=== PATIENT | female | born 1975 | race African-American/Black ===

== ENCOUNTER 2017-06-05 01:02 | Emergency (ER) | payer BC, MEDICAID ==
[~2017-06-05] VITALS: Ht 144.8 cm; Wt 41.0 kg
[2017-06-05 01:04] VITALS: BP 123/77
== END 2017-06-05 08:28 | disposition left against medical advice (07) ==
LOC: ER 01:07
DX: R10.9 Unspecified abdominal pain (principal); Z53.21 Procedure and treatment not carried out due to patient leaving prior to being seen by health care provider

== ENCOUNTER 2017-11-26 19:01 | Emergency (ER) | payer MEDICAID ==
[~2017-11-26] VITALS: Ht 162.6 cm; Wt 50.0 kg
[2017-11-26] MEDS ORDERED: KETOROLAC 60MG/2ML VIAL IM ONE (21:45)
[2017-11-26 23:09] VITALS: BP 119/59
== END 2017-11-26 23:09 | disposition home or self-care (01) ==
LOC: ER 19:25
DX: S09.8XXA Other specified injuries of head, initial encounter (principal); S16.1XXA Strain of muscle, fascia and tendon at neck level, initial encounter; J45.909 Unspecified asthma, uncomplicated; F17.200 Nicotine dependence, unspecified, uncomplicated; F12.10 Cannabis abuse, uncomplicated; W01.0XXA Fall on same level from slipping, tripping and stumbling without subsequent striking against object, initial encounter; Y93.89 Activity, other specified; Y92.018 Other place in single-family (private) house as the place of occurrence of the external cause
CPT/HCPCS: 70450; 72125; 96372; 99284; J1885; Z7610

== ENCOUNTER 2018-09-11 22:17 | Emergency (ER) | payer MEDICAID ==
[~2018-09-11] VITALS: Ht 144.8 cm; Wt 39.0 kg
[2018-09-12] MEDS ORDERED: KETOROLAC 30MG/ML VIAL IV STA (06:39)
[2018-09-12 07:05] LABS: BASOPHILS % 1.1 % (0.0-2.0); EOSINOPHILS % 6.3 % (0.0-5.0); HEMATOCRIT. 41.5 % (36.0-48.0); MEAN CORPUSCULAR HEMOGLOBIN 29.6 pg (28.0-32.0); MEAN CORPUSCULAR VOLUME 87.9 fL (81.0-99.0); MEAN PLATELET VOLUME 7.3 fl (7.4-10.4); MONOCYTES % 8.2 % (2.0-8.0); NEUTROPHILS % 51.4 % (40.0-76.0); PLATELET 242 x1000/uL (130-400); RED BLOOD CELL COUNT 4.72 mill/uL (4.2-5.4); RED CELL DISTRIBUTION WIDTH 13.7 % (11.6-14.6)
[2018-09-12 07:07] LABS: CHLORIDE 102 mEq/L (98-107)
[2018-09-12 07:19] LABS: CLARITY URINE CLOUDY (CLEAR); COLOR URINE YELLOW (YELLOW); KETONES URINE NEGATIVE (NEGATIVE); LEUKOCYTE ESTERASE URINE 1+ (NEGATIVE); NITRITE URINE NEGATIVE (NEGATIVE); OCCULT BLOOD URINE 3+ (NEGATIVE); PROTEIN URINE NEGATIVE (NEGATIVE); SPECIFIC GRAVITY URINE 1.023 (1.005-1.030)
[2018-09-12] MEDS ORDERED: IOHEXOL-300 100 ML BOTTLE ONE (08:27)
[2018-09-12 11:15] VITALS: BP 120/78
== END 2018-09-12 11:35 | disposition home or self-care (01) ==
LOC: ER 22:17
DX: N93.9 Abnormal uterine and vaginal bleeding, unspecified (principal); J45.909 Unspecified asthma, uncomplicated; F17.200 Nicotine dependence, unspecified, uncomplicated; Z90.49 Acquired absence of other specified parts of digestive tract; Z87.19 Personal history of other diseases of the digestive system
CPT/HCPCS: 36415; 74177; 80053; 81003; 83690; 85025; 96374; 99284; 99406; J1885; Q9967; Z7610

== ENCOUNTER 2019-02-12 20:46 | Emergency (ER) | payer MEDICAID ==
[~2019-02-12] VITALS: Ht 162.6 cm; Wt 61.0 kg
[2019-02-12] MEDS ORDERED: ONDANSETRON HCL 4MG/2ML INJ IV STA (21:28)
[2019-02-12] MEDS ORDERED: KETOROLAC 30MG/ML VIAL IV STA (21:28)
[2019-02-12] MEDS ORDERED: SODIUM CHLORIDE 0.9% 1,000 ML IV ONE (21:28)
[2019-02-12 22:57] LABS: BASOPHILS % 0.6 % (0.0-2.0); EOSINOPHILS % 2.1 % (0.0-5.0); HEMATOCRIT. 33.5 % (36.0-48.0); HEMOGLOBIN. 11.4 g/dL (12.0-16.0); LYMPHOCYTES % 12.2 % (20.0-50.0); MEAN CORPUSCULAR HEMOGLOBIN 30.1 pg (28.0-32.0); MEAN CORPUSCULAR VOLUME 88.2 fL (81.0-99.0); MONOCYTES % 7.7 % (2.0-8.0); NEUTROPHILS % 77.4 % (40.0-76.0); PLATELET 214 x1000/uL (130-400); RED CELL DISTRIBUTION WIDTH 14.1 % (11.6-14.6)
[2019-02-12 23:05] LABS: INR 1.1; PROTHROMBIN TIME 11.7 sec (9.6-11.0)
[2019-02-12 23:58] LABS: CLARITY URINE CLEAR (CLEAR); COLOR URINE YELLOW (YELLOW); KETONES URINE NEGATIVE (NEGATIVE); LEUKOCYTE ESTERASE URINE 2+ (NEGATIVE); NITRITE URINE NEGATIVE (NEGATIVE); OCCULT BLOOD URINE NEGATIVE (NEGATIVE); PH URINE 5.5 (4.5-8.0); PROTEIN URINE NEGATIVE (NEGATIVE); SPECIFIC GRAVITY URINE 1.022 (1.005-1.030)
[2019-02-13 00:38] LABS: CHLORIDE 108 mEq/L (98-107)
[2019-02-13 02:01] VITALS: BP 107/59
== END 2019-02-13 02:05 | disposition home or self-care (01) ==
LOC: ER 20:46
DX: N39.0 Urinary tract infection, site not specified (principal); R53.1 Weakness; J45.909 Unspecified asthma, uncomplicated
CPT/HCPCS: 36415; 80053; 81003; 81025; 83690; 85025; 85610; 93005; 96361; 96374; 96375; 99283; J1885; J2405; J7030

== ENCOUNTER 2020-07-23 03:28 | Emergency (ER) | payer BC, MEDICAID ==
[~2020-07-23] VITALS: Ht 147.3 cm; Wt 45.0 kg
[2020-07-23] MEDS ORDERED: ONDANSETRON HCL 4MG/2ML INJ IV ONE (04:00)
[2020-07-23] MEDS ORDERED: MORPHINE SULFATE 4 MG/ML CPJ (NOT FOR IM USE) IV ONE (04:00)
[2020-07-23] MEDS ORDERED: SODIUM CHLORIDE 0.9% 1,000 ML IV ONE (04:00)
[2020-07-23 04:23] LABS: HEMATOCRIT. 34.7 % (36.0-48.0); HEMOGLOBIN. 11.6 g/dL (12.0-16.0); MEAN CORPUSCULAR HEMOGLOBIN 29.3 pg (28.0-32.0); MEAN PLATELET VOLUME 6.5 fl (7.4-10.4); PLATELET 257 x1000/uL (130-400); RED BLOOD CELL COUNT 3.95 mill/uL (4.2-5.4); RED CELL DISTRIBUTION WIDTH 13.8 % (11.6-14.6)
[2020-07-23 04:44] LABS: CHLORIDE 104 mEq/L (98-107)
[2020-07-23 05:10] LABS: B-HCG QUANTITATIVE 19136 mIU/mL (<3)
[2020-07-23 06:00] VITALS: BP 119/71
[2020-07-23 06:09] LABS: PLATELET ESTIMATE NORMAL
== END 2020-07-23 06:21 | disposition home or self-care (01) ==
LOC: ER 03:28
DX: O02.1 Missed abortion (principal); R03.0 Elevated blood-pressure reading, without diagnosis of hypertension
CPT/HCPCS: 36415; 76830; 76856; 80053; 81025; 84702; 85025; 86850; 86900; 86901; 93005; 96361; 96374; 96375; 99285; J2270; J2405; J7030; Z7610

== ENCOUNTER 2020-07-23 22:08 | Emergency (ER) | payer MEDICAID ==
[~2020-07-23] VITALS: Ht 149.9 cm; Wt 50.0 kg
[2020-07-24] MEDS ORDERED: DIPHENHYDRAMINE 50MG/ML VIAL IV ONE
[2020-07-24] MEDS ORDERED: ONDANSETRON HCL 4MG/2ML INJ IV ONE
[2020-07-24] MEDS ORDERED: MORPHINE SULFATE 2 MG/ML CPJ (NOT FOR IM USE) IV ONE
[2020-07-24] MEDS ORDERED: SODIUM CHLORIDE 0.9% 1,000 ML IV ONE
[2020-07-24] MEDS ORDERED: MORPHINE SULFATE 4 MG/ML CPJ (NOT FOR IM USE) IV NR (00:45)
[2020-07-24 00:49] LABS: BASOPHILS % 0.5 % (0.0-2.0); EOSINOPHILS % 2.3 % (0.0-5.0); HEMATOCRIT. 33.1 % (36.0-48.0); LYMPHOCYTES % 12.2 % (20.0-50.0); MEAN CORPUSCULAR HEMOGLOBIN 29.3 pg (28.0-32.0); MEAN CORPUSCULAR VOLUME 88.2 fL (81.0-99.0); PLATELET 257 x1000/uL (130-400); RED BLOOD CELL COUNT 3.75 mill/uL (4.2-5.4); RED CELL DISTRIBUTION WIDTH 13.9 % (11.6-14.6)
[2020-07-24 04:02] VITALS: BP 102/80
== END 2020-07-24 04:13 | disposition home or self-care (01) ==
LOC: ER 22:08
DX: O36.4XX0 Maternal care for intrauterine death, not applicable or unspecified (principal); O99.511 Diseases of the respiratory system complicating pregnancy, first trimester; Z3A.09 9 weeks gestation of pregnancy; Z88.5 Allergy status to narcotic agent; Z98.890 Other specified postprocedural states
CPT/HCPCS: 36415; 85025; 93005; 96361; 96374; 96375; 99285; J1200; J2270; J2405; J7030